=== PATIENT | female | born 1990 | race African-American/Black ===

== ENCOUNTER 2022-09-26 06:45 | Inpatient (IN) | payer OTHER ==
[2022-09-26] MEDS ORDERED: AMPICILLIN - 2 GM in SODIUM CHLORIDE 100 ML IVPB ONE (08:15)
[2022-09-26 08:27] VITALS: BMI 30.7
[2022-09-26] MEDS ORDERED: SODIUM CHLORIDE 100 ML IVPB ONE (08:27)
[2022-09-26] MEDS ORDERED: AMPICILLIN SODIUM 2 GM VIAL ONE (08:27)
[2022-09-26] MEDS ORDERED: FENTANYL CITRATE/PF 50 MCG/ML VIAL ONE (08:57)
[2022-09-26] MEDS ORDERED: ELECTROLYTE-148 SOLN 1,000 ML IV SCH ×2 (09:00→09:15)
[2022-09-26 09:01] LABS: INR 0.96 (0.83-1.09); PROTHROMBIN TIME (PATIENT) 11.1 SEC (9.7-13.0)
[2022-09-26 09:04] LABS: ACTIVATED PTT 26.1 SECONDS (25.2-36.5)
[2022-09-26] MEDS ORDERED: FENTANYL/BUPIVACAINE/NS/PF - PCEA - 50 ML DISP.SYRIN EP ONE (09:05)
[2022-09-26 09:07] LABS: BASO % 0.4 % (0-2.0); EOS % 0.7 % (0-4.5); HEMATOCRIT 36.5 % (32.4-45.2); LYMPH % 15.8 % (8-40); MCH 29.1 pg (25.7-33.7); MCHC 32.9 g/dl (32.0-36.0); MEAN CELL VOLUME 88.3 fl (80-96); MEAN PLT VOLUME 10.4 fl (7.5-11.1); MONO % 7.3 % (3.8-10.2); NEUT % 75.8 % (42.8-82.8); PLATELET COUNT 219 10^3/uL (134-434); RBC 4.14 M/mm3 (3.60-5.2); RDW 15.5 % (11.6-15.6); WHITE BLOOD COUNT 10.8 K/mm3 (4.0-10.0)
[2022-09-26 09:23] LABS: POTASSIUM 4.2 mmol/L (3.5-5.1)
[2022-09-26 09:25] LABS: BLOOD UREA NITROGEN 8.1 mg/dL (7-18); CALCIUM 9.2 mg/dL (8.5-10.1)
[2022-09-26 09:26] LABS: ALBUMIN 2.6 g/dl (3.4-5.0)
[2022-09-26 09:28] LABS: CREATININE 0.5 mg/dL (0.55-1.3)
[2022-09-26 09:29] LABS: SYPHILIS W/ RPR CONF NON-REACTIVE (NONREACTIVE)
[2022-09-26 09:30] LABS: BILIRUBIN,TOTAL 0.2 mg/dL (0.2-1); TOT PROT 6.3 g/dl (6.4-8.2)
[2022-09-26] MEDS ORDERED: NALOXONE HCL 0.4 MG/ML VIAL IVPUSH PRN (09:42)
[2022-09-26] MEDS ORDERED: FENTANYL/BUPIVACAINE/NS/PF - PCEA - 50 ML DISP.SYRIN EP SCH (09:45)
[2022-09-26 09:57] LABS: HIV INTERPRETATION NEGATIVE (NEGATIVE)
[2022-09-26] MEDS ORDERED: LIDOCAINE HCL 1% PRESERVATIVE FREE - 30ML VIAL ONE (11:25)
[2022-09-26] MEDS ORDERED: OXYTOCIN 20 UNITS in 0.9% NS 20 UNIT/1,000 ML INFUS.BAG IV ONE ×2 (11:25→12:44)
[2022-09-26] MEDS: OXYTOCIN 20 UNITS in 0.9% NS 20 UNIT/1,000 ML INFUS.BAG IV SCH ×2 (11:28→12:50)
[2022-09-26] MEDS ORDERED: BENZOCAINE 20% 57 GM BOTTLE TP PRN (12:05)
[2022-09-26] MEDS ORDERED: BISACODYL 10 MG SUPP.RECT RC PRN (12:05)
[2022-09-26] MEDS ORDERED: ACETAMINOPHEN 325 MG TABLET (FP) PO PRN (12:05)
[2022-09-26] MEDS ORDERED: BENZOCAINE 28 GM HEMORRHOIDAL OINTMENT TP PRN (12:05)
[2022-09-26] MEDS ORDERED: WITCH HAZEL 50% (TUCKS) 40 PAD/JAR PAD TP PRN (12:05)
[2022-09-26] MEDS ORDERED: LABETALOL HCL 100 MG TABLET (FP) PO PRN ×2 (12:06→12:09)
[2022-09-26] MEDS ORDERED: AMPICILLIN - 1 GM in SODIUM CHLORIDE 100 ML IVPB SCH (12:15)
[2022-09-26] MEDS ORDERED: ONDANSETRON 4 MG/2 ML VIAL ONE (13:10)
[2022-09-26] MEDS ORDERED: CARBOPROST TROMETHAMINE 250 MCG/ML AMPUL IM ONE (13:15)
[2022-09-26] MEDS: IBUPROFEN 600 MG TABLET (FP) PO PRN ×2 (14:09→22:15)
[2022-09-26] MEDS ORDERED: IBUPROFEN 600 MG TABLET (FP) PO ONE (14:10)
[2022-09-26] MEDS ORDERED: ONDANSETRON 4 MG/2 ML VIAL IVPB ONE (14:30)
[2022-09-27 07:56] LABS: BASO % 0.4 % (0-2.0); EOS % 0.5 % (0-4.5); HEMATOCRIT 31.2 % (32.4-45.2); HEMOGLOBIN 10.2 GM/dL (10.7-15.3); LYMPH % 15.1 % (8-40); MCH 28.9 pg (25.7-33.7); MCHC 32.8 g/dl (32.0-36.0); MEAN CELL VOLUME 88.2 fl (80-96); MEAN PLT VOLUME 10.1 fl (7.5-11.1); MONO % 6.7 % (3.8-10.2); NEUT % 77.3 % (42.8-82.8); PLATELET COUNT 201 10^3/uL (134-434); RBC 3.54 M/mm3 (3.60-5.2); RDW 15.5 % (11.6-15.6); WHITE BLOOD COUNT 12.9 K/mm3 (4.0-10.0)
[2022-09-27] MEDS: IBUPROFEN 600 MG TABLET (FP) PO PRN ×3 (08:55→19:53)
[2022-09-27] MEDS ORDERED: DIPHTH,PERTUSS(ACELL),TET 0.5 ML DISP.SYRIN IM ONE (10:00)
[2022-09-27] MEDS ORDERED: SENNOSIDES/DOCUSATE COMBO (SENNA PLUS) TABLET (UD) PO PRN (22:00)
[2022-09-28 09:13] VITALS: BP 128/74; PULSE 9; RESP 18; TEMP 97.8
== END 2022-09-28 15:40 | disposition home or self-care (01) | DRG 807 ==
LOC: JDEL 06:45 → JLDR 07:30 → J3W 15:46
PROVIDERS: ADMIT Obstetrics & Gynecology; ATTEND Obstetrics & Gynecology
PROC: 10E0XZZ Delivery of Products of Conception, External Approach (ICD-10-PCS; principal; 2022-09-26)
DX: O69.81X0 Labor and delivery complicated by cord around neck, without compression, not applicable or unspecified (principal); Z37.0 Single live birth; O99.824 Streptococcus B carrier state complicating childbirth; Z3A.40 40 weeks gestation of pregnancy; Z87.59 Personal history of other complications of pregnancy, childbirth and the puerperium
CPT/HCPCS: 36415; 80048; 80053; 82570; 82962; 84156; 85025; 85610; 85730; 86780; 86850; 86900; 86901; 87389; 88307-TC; 90715